=== PATIENT | male | born 1965 | race Caucasian/White ===

== ENCOUNTER 2019-09-03 19:57 | Emergency (ER) | payer SELFPAY ==
[~2019-09-03] VITALS: Ht 188 cm; Wt 102.1 kg
[2019-09-03 20:07] VITALS: BP 139/88; Ht 188 cm; Wt 102.1 kg
== END 2019-09-03 22:39 | disposition left against medical advice (07) ==
LOC: ED 19:57
DX: Z53.21 Procedure and treatment not carried out due to patient leaving prior to being seen by health care provider (principal)